=== PATIENT | male | born 1955 | race Caucasian/White ===

== ENCOUNTER 2020-01-28 00:45 | Day surgery (SDC) | payer OTHER, SELFPAY ==
[2020-01-21 15:04] VITALS: BMI 39.3
[2020-01-28 08:59] VITALS: BP 110/76; PULSE 72; RESP 16; TEMP 36.3; O2SAT 96
[2020-01-28] MEDS: LACTATED RINGERS 1,000 ML 150 ML IV CONT (09:13)
--- NOTE | 2020-01-28 09:31 | WPDANESEPPF ---
Anes - Initial Pre Proc Eval Procedure: Operation Date: 01/28/20 10:00 Proposed Procedures p Screening Colonoscopy - Richmond Hanks MD Date/Time: 01/28/20 09:31 Surgeon: Richmond Hanks MD Pre Op Diagnosis: neoplasm screening, hx colon polyps Patient Data Age: 64 Gender: M Height: 6 ft 2 in Weight: 137 kg Last Vital Signs Temp 97.3 F L 01/28/20 08:59 Pulse 72 01/28/20 08:59 Resp 16 01/28/20 08:59 BP 110/76 01/28/20 08:59 Pulse Ox 96 01/28/20 08:59 Allergies Allergy/AdvReac Type Severity Reaction Status Date / Time No Known Allergies Allergy Verified 01/28/20 08:57 Home Medications Medication Instructions Recorded Confirmed Type allopurinol 100 mg PO DAILY 01/21/20 01/21/20 History alprazolam 0.5 mg PO DAILY 01/21/20 01/21/20 History Patient hx anesthesia problems: none Family hx anesthesia problems: none [facility] Past Medical History Medical History (Updated 01/28/20 @ 09:31 by Rocco Shipley MD) GERD (gastroesophageal reflux disease) Anes - Eval Final PreProcedure Day of Procedure 01/28/20 09:31 Patient weight: obese Heart: regular rate and rhythm Lungs: clear to auscultation Airway: Mallampati scale class III Neurological: alert and oriented Last oral intake: >/= 8 hours ASA classification: II Emergent: no Anesthetic plan: proceed Anesthesia type and monitoring: general GIVS and standard monitoring Informed Consent: The patient's anesthetic plan and its attendant risks and benefits were discussed with the patient/family/POA. Questions were solicited and answers provided to the satisfaction of the patient/family/POA.
--- NOTE | 2020-01-28 09:46 | WPDGICN ---
Assessment and Plan Assessment and plan (1) Encounter for screening for colorectal malignant neoplasm: Code(s): Z12.11 - Encounter for screening for malignant neoplasm of colon; Z12.12 - Encounter for screening for malignant neoplasm of rectum Status: Acute Assessment and Plan: Patient will have a colonoscopy because of personal history of colon polyps as well as a family history of colon cancer in his mother. Plan for high-fiber diet colonoscopy at 5 year intervals. (2) Family history of colon cancer in mother: Code(s): Z80.0 - Family history of malignant neoplasm of digestive organs Status: Acute (3) History of cholecystectomy: Code(s): Z90.49 - Acquired absence of other specified parts of digestive tract Status: Acute GI Consult Note Consult date/time: 01/28/20 09:46 HPI: Prakash Gómez is a 64 year old male Seen in evaluation at the request of Dr. Felix Khan. Patient presents for follow-up colonoscopy. Patient has a history of colon polyps identified 5 years ago. His current weight appetite bowel movements are normal. He denies abdominal pain. He denies any blood in his stools. His bowel habits are archana l. Family history is significant his mother had colon cancer. Past medical history is significant for cholecystectomy 3 or 4 years ago. He has been treated for gout. Review of Systems Review of Systems: All systems reviewed & are unremarkable except as noted in HPI and below PMFSH Past Medical History Medical History (Updated 01/28/20 @ 09:49 by Richmond Hanks MD) GERD (gastroesophageal reflux disease) Meds Home Medications and Allergies Home Medications Medication Instructions Recorded Confirmed Type allopurinol 100 mg PO DAILY 01/21/20 01/21/20 History alprazolam 0.5 mg PO DAILY 01/21/20 01/21/20 History Allergies Allergy/AdvReac Type Severity Reaction Status Date / Time No Known Allergies Allergy Verified 01/28/20 08:57 Vital Signs Vital Signs - 24 hr 01/28/20 08:59 Temperature 36.3 C L Pulse Rate 72 Respiratory Rate 16 Blood Pressure 110/76 Pulse Oximetry 96 Exam Narrative: Exam Narrative: Physical exam reveals him to be alert. Vital signs stable. HEENT exam unremarkable. He is anicteric. Lungs are clear to auscultation and percussion. Heart is without murmur or extra sounds. Abdominal exam bowel sounds are present soft nontender with no organomegaly. Digital external rectal exam normal.
[2020-01-28 10:08] VITALS: BP 140/76; PULSE 76; RESP 16; O2SAT 97
[2020-01-28 10:18] VITALS: BP 102/61; PULSE 63; RESP 16; O2SAT 98
[2020-01-28 10:28] VITALS: BP 108/71; PULSE 60; RESP 16; O2SAT 100
== END 2020-01-28 10:38 | disposition home or self-care (01) ==
PROVIDERS: PCP Internal Medicine; Visit Provider Internal Medicine Gastroenterology
PROC: 0DJD8ZZ Inspection of Lower Intestinal Tract, Via Natural or Artificial Opening Endoscopic (ICD-10-PCS; CPT 45378; principal; 2020-01-28 10:00)
DX: Z12.11 Encounter for screening for malignant neoplasm of colon (principal); K62.1 Rectal polyp; K64.8 Other hemorrhoids; Z80.0 Family history of malignant neoplasm of digestive organs; K21.9 Gastro-esophageal reflux disease without esophagitis; E66.9 Obesity, unspecified; Z68.38 Body mass index [BMI] 38.0-38.9, adult
CPT/HCPCS: 45385; 88305; J2704; J7120